=== PATIENT | female | born 1960 | race Caucasian/White ===

== ENCOUNTER 2024-11-16 11:19 | Emergency (ER) | payer OTHER, SELFPAY ==
[2024-11-16 11:26] VITALS: BP 161/83
--- NOTE | 2024-11-16 12:10 | ED.GENMED ---
History of Present Illness
General
Chief Complaint: Abdominal Pain
Source: patient and family (Daughter at bedside)
Exam Limitations: none
Time Seen by Provider: 11/16/24 12:04
Nursing documentation reviewed up to this point in time: agreed with
History of Present Illness
History of Present Illness:
64-year-old female with history of HTN, HLD, cholecystectomy and chronic cough states she has had intermittent pain for the past 2 months in the right side sometimes radiating to mid abdomen. Pain became suddenly worse overnight. She had a normal
bowel movement today and is urinating as usual. She denies fever or chills.
Past History
Past History
ED Past Medical History: HTN, Hypercholesterolemia and Other (Chronic cough)
ED Past Surgical History: Cholecystectomy
Social History
Tobacco: Non-smoker
Alcohol: None
Personal:
Living: with family
Review of Systems
Review of Systems
Allergies reviewed?: Yes
All Other Systems: ROS reviewed and negative except as documented in HPI and ROS
Constitutional: Denies fever
Respiratory: Denies trouble breathing
Cardiac: Denies chest pain
ABD/GI: Reports abdominal pain; Denies nausea, vomiting, diarrhea, constipated, bloody stools or black stools
: Denies dysuria, frequency or difficulty voiding
Musculoskeletal: Reports no symptoms
Skin: Reports no symptoms
Phy Exam
Physical Exam
Physical Exam:
GENERAL: Female patient standing holding her right side, tearful due to pain. A&Ox3.
CONSTITUTIONAL: Afebrile.
EYES: clear, conjunctivae normal
ENMT: moist mucus membranes, Pharynx nl
RESPIRATORY: Regular respirations, nonlabored, lungs clear.
CARDIOVASCULAR: Regular rate and rhythm, no murmurs, no rubs.
GI: Soft, tender right abdomen, normal BS
MUSCULOSKELETAL: Moves with ease. Well perfused.
SKIN: Warm, dry, pink
PSYCH: Tearful mood and affect. Well kept, interactive and appropriate
NEUROLOGIC: Awake, alert and oriented. No focal neurological deficits
Course
Orders/Labs/Results
Orders:
Orders
11/16/24 12:09
CT Abd/Pel (IV only)-DH only Urgent
Comment:
Reason For Exam: mid to right abdominal pain
0.9% Sodium Chloride 1000 ml [Nss] 1,000 ml IV BOLUS
HYDROmorphone [Dilaudid] 0.5 mg IV NOW STA
Ondansetron Injectable [Zofran] 4 mg IV NOW STA
11/16/24 12:10
HYDROmorphone [Dilaudid] 1 mg IV NOW STA
11/16/24 12:29
Complete Blood Count/With Diff Urgent
Comprehensive Metabolic Panel Urgent
Lipase Urgent
Urinalysis Reflex To Culture Urgent
Date Specimen was Collected: 11/16/24
Time Specimen was Collected: 12:16
11/16/24 16:01
CT Abd/pelvis Angio W/wo Iv Urgent
Comment:
Reason For Exam: severe abd pain concern for ischemia
11/16/24 16:10
Lactic Acid Urgent
11/16/24 16:12
HYDROmorphone [Dilaudid] 1 mg .ROUTE .STK-MED ONE
11/16/24 16:16
HYDROmorphone [Dilaudid] 1 mg IV NOW STA
11/16/24 17:43
Ondansetron Injectable [Zofran] 4 mg .ROUTE .STK-MED ONE
11/16/24 17:45
Ondansetron Injectable [Zofran] 4 mg IV NOW STA
11/16/24 19:02
Magnesium Citrate [Citroma] 300 ml PO ONCE ONE
11/16/24 19:30
Pantoprazole [Protonix IV] 80 mg IV NOW STA
Abnormal Lab Results
11/16/24
12:29
MCH 31.1 H pg
(27.0-31.0)
MPV 11.4 H fL
(7.4-10.4)
Absolute Monos (auto) 0.7 H 10^3/uL
(0.1-0.6)
Chloride 112 H mmol/L
(98-107)
ALT 42 H U/L
(0-35)
11/16/24 12:29
11/16/24 12:29
Vital Signs
Initial and Last Documented VS:
Initial Vital Signs
Temp Pulse Resp BP Pulse Ox
98.0 F 94 18 161/83 97
11/16/24 11:26 11/16/24 11:26 11/16/24 11:26 11/16/24 11:26 11/16/24 11:26
Last Documented Vital Signs
Temp Pulse Resp BP Pulse Ox
97.6 F 77 16 127/74 96
11/16/24 16:10 11/16/24 16:10 11/16/24 15:00 11/16/24 16:10 11/16/24 16:10
MDM/Problems Addressed
Differential Diagnosis Includes:
Appendicitis, kidney stone, mesenteric ischemia
MDM/Problems Addressed:
64-year-old female with history of HTN, HLD, cholecystectomy and chronic cough states she has had intermittent pain for the past 2 months in the right side sometimes radiating to mid abdomen. Pain became suddenly worse overnight. She had a normal
bowel movement today and is urinating as usual. She denies fever or chills.
Afebrile, standing, crying in pain
2:00 p.m.
CBC normal
CMP: normal
U/A neg
Lipase normal
CT abd/pelvis with IV only contrast: Radiology report read: IMPRESSION: No acute pathology of the abdomen or pelvis identified.
Moderate fecal material in the colon.
Prior cholecystectomy.
Simple left renal cyst. Small left parapelvic renal cysts. Too small to characterize hypodense left renal lesion likely a benign cyst.
4:00 p.m.
Little relief from pain med. This has been going off and on for past year, worse in the past month and even worse past week.
Lactic acid normal
Daughter now tells me her doctor ordered out pt CTA but insurance has not approved
CTA ordered
6:[address] abd/pelvis Angio W/wo IV contrast Radiology report read: IMPRESSION: No acute pathology of the abdomen or pelvis identified. Limited evaluation of bowel without oral contrast.
2 small to characterize hypodense left renal lesions likely benign cysts. Simple left renal cyst. Left parapelvic renal cysts. Stable
Moderate fecal material in the colon. Stable
Prior cholecystectomy. Stable
Case discussed with Dr. Mix. Who agrees pt ok for discharge
7:30 p.m.
Pt looks much better, smiling at times.
Lengthy discussion via meteorological engineer [id number]
Discussed constipation treatment, Miralax, Mag Citrate, Protonix, GI follow, copies of CT reports provided to her.All discharge instructions reviewed through meteorological engineer, all questions answered.
Texted GI front desk worker to get her in sooner, left daughter's phone number since pt and non Engilsh speaking
Rx for Protonix sent to her pharmacy.
*Critical Care Note
Total Time (30-74mins, 75-104mins- exclusive of procedures): Not Applicable
ED Attending Note
-
Portions of this chart may have been created with voice recognition software.� Occasional wrong word or��sound alike� substitutions may have occurred due to the inherent limitations of voice recognition software.
Discharge Plan
Departure
Patient Disposition: Home (Routine Discharge)
Date of Disposition: 11/16/24
Time of Disposition: 19:30
Patient with high blood pressure during this ER visit?: No
Condition: Fair
Discharge Problem:
Abdominal pain, Constipation
Instructions: Constipation, Adult (DC), Acid Reflux and GERD in Adults (DC), Abdominal Pain
Prescriptions:
New
pantoprazole [Protonix] 40 mg tablet,delayed release (DR/EC)
40 mg PO DAILY Qty: 30 0RF
Referrals:
Suzan Rucker MD [Family Provider]
Debbie Gamez MD [Active, Gastroenterology] - Next open appointment
Activity Restrictions/Additional Instructions:
As we discussed, there is nothing worrisome in your workup here today, your abdominal CT scans show nothing abnormal.
They do show a moderate amount of stool in your bowels so treat yourself for constipation with daily Miralax, starting tomorrow, and see if your pain is better after some good bowel movement.
Take the entire bottle of Magnesium Sulfate at home and hopefully you will have a good BM within 24 hours.
Drink at least six 8 ounce glasses of water/liquid daily
You received Protonix (a stomach acid kayleen) in your IV here today.
I sent a prescription to your pharmacy for Protonix to take daily and let the GI doctor know if it helped
I sent a text to the GI doctor's office to request and appointment sooner rather than later...someone should be calling your daughter in the next 1-2 days to set up an appointment.
Take copies of your CT reports and all lab work to your doctor for follow up this week.
Return here immediately for fever, vomiting more than once in one hour, worsening pain, bloody stools or feeling worse in any way.
Interventions
Interventions:
*Risk Screen - Suicide Last Done: 11/16/24 11:26
*General Assessment Last Done: 11/16/24 11:26
*Neglect/Abuse Screening Last Done: 11/16/24 11:26
*ED- Fall Risk Assessment Last Done: 11/16/24 12:33
*ED COVID-19 Vaccine History Last Done: 11/16/24 12:33
QM-Inovdx-Lctkaiecxd Assessment Last Done: 11/16/24 12:37
Discharge Date and Time
Print Language: ICELANDIC
[2024-11-16] MEDS: NSS 1000 IV (12:29)
[2024-11-16] MEDS: ZOFRAN 4 MG IV ×2 (12:30→17:45)
[2024-11-16] MEDS: DILAUDID 1 MG IV ×2 (12:31→16:16)
[2024-11-16 12:33] VITALS: BMI 28.1
[2024-11-16 12:43] LABS: Urine Albumin Negative (Neg - Trace); Urine Bilirubin Negative (Negative); Urine Character Clear (Clear); Urine Color Yellow; Urine Glucose Negative (Negative); Urine Ketone Negative (Negative); Urine Leukocyte Negative (Negative); Urine Nitrite Negative (Negative); Urine Occult Blood Negative (Negative); Urine Specific Gravity 1.025 (<1.030); Urine Urobilinogen Negative (Neg - 1+)
[2024-11-16 12:47] LABS: % Basophils 0.8 % (0-2); % Eosinophils 2.5 % (0-6); % Immature Granulocytes 0.1 % (0-0.5); % Neutrophils 63.6 % (42.2-75.2); Absolute Basophils 0.1 10^3/uL (0-0.2); Absolute Eosinophils 0.2 10^3/uL (0-0.7); Absolute Lymphocytes 2.1 10^3/uL (1.2-3.4); Absolute Monocytes 0.7 10^3/uL (0.1-0.6); Absolute Neutrophils 5.4 10^3/uL (1.4-6.5); Hematocrit 39.8 % (37.0-47.0); Hemoglobin 13.8 g/dL (12.0-16.0); Mean Corp Hgb Conc. 34.7 g/dL (33.0-37.0); Mean Corpuscular Hgb 31.1 pg (27.0-31.0); Mean Corpuscular Volume 89.6 fL (81.0-99.0); Mean Platelet Volume 11.4 fL (7.4-10.4); Nucleated Red Blood Cells % 0 %; Platelet Count 216 10^3/uL (130-400); Red Blood Cell Count 4.44 10^6/uL (4.20-5.40); White Blood Cell Count 8.5 10^3/uL (4.8-10.8)
[2024-11-16 12:53] LABS: ALT (SGPT) 42 U/L (0-35); AST (SGOT) 26 U/L (14-36); Albumin 4.6 g/dl (3.5-5.0); Alkaline Phosphatase 111 U/L (38-126); Blood Urea Nitrogen 14 mg/dl (7-17); Calcium 9.4 mg/dl (8.4-10.2); Carbon Dioxide 22 mmol/L (22-30); Chloride 112 mmol/L (98-107); Estimated Creatinine Clearance 92 ml/min; Glucose 99 mg/dl (70-99); Lipase 112 U/L (23-300); Potassium 4.1 mmol/L (3.5-5.1); Sodium 141 mmol/L (135-145); Total Bilirubin 0.4 mg/dl (0.2-1.3); Total Protein 7.8 g/dl (6.3-8.2); eGFR > 60.00
[2024-11-16 15:00] VITALS: BP 151/85
[2024-11-16 16:10] VITALS: BP 127/74
[2024-11-16 16:29] LABS: Lactic Acid 0.8 mmol/L (0.7-2.0)
[2024-11-16] MEDS: PROTONIX IV 80 MG IV (19:34)
[2024-11-16] MEDS: CITROMA 300 ML PO (19:34)
[2024-11-16 19:53] VITALS: BP 127/72
== END 2024-11-16 19:55 | disposition home or self-care (01) ==
LOC: EMR 11:19
PROVIDERS: Registered Nurse; EMERGENCY PHYSICIAN Emergency Medicine; FAMILY PHYSICIAN Family Medicine
DX: K59.00 Constipation, unspecified (principal); R10.9 Unspecified abdominal pain; I10 Essential (primary) hypertension; E78.00 Pure hypercholesterolemia, unspecified; R05.3 Chronic cough; Z90.49 Acquired absence of other specified parts of digestive tract; N28.1 Cyst of kidney, acquired; Z88.0 Allergy status to penicillin
CPT/HCPCS: 99284; 96361; 96374; 96375 ×2; 96376 ×2; 74174; 74177; 80053; 81003; 83605; 83690; 85025; Q9967

== ENCOUNTER 2025-01-21 06:23 | Day surgery (SDC) | payer OTHER, SELFPAY | END 2025-01-21 09:17 | disposition home or self-care (01) | LOC: GI 06:23 | PROVIDERS: ATTENDING PHYSICIAN Internal Medicine | DX: Z12.11 Encounter for screening for malignant neoplasm of colon (principal); K64.8 Other hemorrhoids; K62.1 Rectal polyp | CPT/HCPCS: 45380; 88305 ==